=== PATIENT | female | born 1975 | race Caucasian/White ===

== ENCOUNTER → 2017-01-06 | Outpatient (CLI) | payer BC ==
--- NOTE | 2017-01-06 13:43 | Discharge Instructions ---
Discharge Instructions Procedure Procedure Date: Jan 06, 2017. Reason for visit: Abn Imaging Of Left Thyroid; Asymmetric Uptake On. Discharge Discharge Date: Jan 06, 2017. Discharge Diagnosis: s/p left lobe thyroid nodule FNA x 2 Instructions Activity Recommendations: No limitations Return to School/Work: no limitations Recommended Home Diet: No Limitations Provider Instructions: ACTIVITY RECOMMENDATIONS: * Rest today. * Resume regular activity in one day. MEDICATIONS: * May take Tylenol or Ibuprofen as needed for pain. DIET: * Resume previous diet. SPECIAL CARE INSTRUCTIONS: Call your doctor if: * Temperature above 101 degrees F. * Pain not relieved by pain medicine ordered. * Increased drainage or redness from incision. * Notify your doctor with any questions or concerns. Call your doctor or go to the nearest Emergency Department if you experience: * Increased chest pain or shortness of breath. FOLLOW UP VISIT: Follow-up with Referring Physician as scheduled. Aashish Lopez Recommendations: Call your doctor if: * Temperature above 101 degrees * Pain not relieved by pain medicine ordered * There is increased drainage or redness from any incision * You have any unanswered questions or concerns. Your Doctors Instructions noted above were prepared by provider Bc Nina. Patient Signature Section: Patient Instructions Signature Page Roxie Mas Patient (or Guardian) Signature/Date: I have read and understand the instructions given to me by my caregivers. Caregiver/RN/Doctor Signature/Date: The above-named patient and/or guardian has received patient instructions on this date. + Original Patient Signature Page (only) stays with chart. Please make copy for patient.
--- NOTE | 2017-01-06 14:07 | DIAGNOSTIC IMAGING REPORT ---
ULTRASOUND GUIDED FINE NEEDLE ASPIRATION OF 2 LEFT LOBE THYROID NODULES CLINICAL HISTORY: Left lobe thyroid nodules. Radiotracer uptake on PET/CT. COMPARISON STUDY: PET/CT December 23, 2016 and thyroid ultrasound December 28, 2016. PROCEDURE: Sonography of the thyroid gland demonstrated the 1 cm hypoechoic nodule within the upper pole of the left lobe and the 1.2 cm hypoechoic lesion within the midpole of the left lobe. These 2 nodules were targeted for fine needle aspiration. The procedure, risks and benefits were discussed with the patient including the risk of bleeding, infection and injury to adjacent structures. The patient agreed to the procedure and informed written consent was obtained. The procedure was performed by Dr. Nina following a timeout. Skin of the neck was prepped and draped in sterile fashion and local anesthesia was achieved with 1% lidocaine. Under direct ultrasound guidance, 2 25-gauge fine needle aspirations of the upper pole nodule were performed followed by 2 25-gauge fine needle aspirations of the mid pole nodule. The samples were deemed preliminarily adequate by pathology. The patient tolerated the procedure well and no immediate complications were evident. IMPRESSION: Ultrasound guided fine needle aspiration of two left lobe thyroid nodules. Electronically signed by: Bc Nina M.D. 01/06/2017 2:05 PM Dictated Date/Time: 01/06/2017 2:02 PM
== END | disposition home or self-care (01) ==
LOC: C.ULTR 12:57
PROVIDERS: ATTEND Surgery
DX: R93.8 Abnormal findings on diagnostic imaging of other specified body structures (principal)